=== PATIENT | male | born 1970 | race Caucasian/White ===

== ENCOUNTER 2017-06-19 07:30 | Inpatient (IN) | payer BC, OTHER ==
[~2017-06-19 07:30] MED LIST: Lactated Ringers 1,000 ML IV SCH; Lidocaine 1%/Sod Bicarbonate in NS 8.4% 1 ML Syringe PRN; Sodium Chloride 0.9% 10 ML Syringe FLUSH PRN
[2017-06-19] MEDS ORDERED: fentaNYL 100 MCG/2 ML SDV ONE (07:35)
[2017-06-19] MEDS ORDERED: Ondansetron 4 MG/2 ML SDV ONE (07:35)
[2017-06-19] MEDS ORDERED: Morphine PF 10 MG/10 ML SDV ONE (07:35)
[2017-06-19] MEDS ORDERED: Propofol 200 MG/20 ML SDV ONE ×3 (07:35→15:37)
[2017-06-19] MEDS ORDERED: Midazolam 1 MG/ML 2 ML SDV ONE ×2 (07:35→13:23)
[2017-06-19] MEDS ORDERED: EPINEPHrine 1 MG/ML 30 ML MDV ONE (09:22)
[2017-06-19] MEDS ORDERED: ceFAZolin 1 GM Vial ONE (09:26)
--- NOTE | 2017-06-19 10:41 | PCM.PREANE ---
Preanesthetic Assessment - Anesthesia/Transfusion/Family Hx Anesthesia History: No Prior Anesthesia Family History of Anesthesia Reaction: No Transfusion History: No Prior Transfusion(s) Intubation History: Unknown - Review of Systems General: No Symptoms Pulmonary: No Symptoms Cardiovascular: No Symptoms Gastrointestinal: No Symptoms Neurological: No Symptoms - Physical Assessment NPO Status Date: 06/18/17 NPO Status Time: 22:00 Pulse: 67 O2 Sat by Pulse Oximetry: 97 Respiratory Rate: 16 Blood Pressure: 110/78 Temperature: 36.7 C Height: 1.52 m Weight: 80 kg ASA Class: 1 Mental Status: Alert & Oriented x3 Airway Class: Mallampati = 2 Dentition: Reports: Normal Dentition, Nixa(s), Caries Thyro-Mental Finger Breadths: 3 Mouth Opening Finger Breadths: 3 ROM/Head Extension: Full Lungs: Clear to Auscultation, Normal Respiratory Effort Cardiovascular: Regular Rate, Regular Rhythm, No Murmurs - Lab Values: Laboratory Last Values MRSA (PCR) Negative 06/06/17 10:24 All labs reviewed and noted and within acceptable ranges to proceed with scheduled procedure. - Imaging/EKG Impressions: EKG: sinus rhythm rate= 70, Low voltage, precordial leads, consider anterior infarct. CXR: No acute abnormality - Allergies Allergies/Adverse Reactions: Allergies Allergy/AdvReac Type Severity Reaction Status Date / Time No Known Allergies Allergy Verified 06/16/17 14:18 - Anesthesia Plan Pre-Op Medication Ordered: None - Acknowledgements Anesthesia Type Planned: Spinal Pt an Appropriate Candidate for the Planned Anesthesia: Yes Alternatives and Risks of Anesthesia Discussed w Pt/Guardian: Yes Pt/Guardian Understands and Agrees with Anesthesia Plan: Yes PreAnesthesia Questionnaire - Past Health History Medical/Surgical History: Denies Medical/Surgical History HEENT History: Reports: Impaired Vision, Other (See Below) Other HEENT History: wears glasses Musculoskeletal History: Reports: Other (See Below) Other Musculoskeletal History: left knee pain Neurological History: Endocrine/Metabolic History: Reports: None - Past Surgical History Endocrine Surgical History: Reports: None - SUBSTANCE USE Smoking Status *Q: Never Smoker Second Hand Smoke Exposure: No Recreational Drug Use History: No - HOME MEDS Home Medications: Home Meds Acetaminophen [Tylenol] 650 mg PO Q6H PRN 06/16/17 [History] - CURRENT (IN HOUSE) MEDS Current Meds: Current Medications Morphine Sulfate 8 mg/Epinephrine HCl 0.3 mg/Cefuroxime Sodium 750 mg/Ketorolac Tromethamine 30 mg/Sodium Chloride 27.9 ml 0 mg .XX ONETIME ONE Stop: 06/19/17 07:11 Lactated Ringer's (Ringers, Lactated) 1,000 mls @ 125 mls/hr IV ASDIRECTED TETE Lidocaine/Sodium Bicarbonate (Buffered Lidocaine 1% In Ns 8.4%) 0.25 ml IV ONETIME PRN PRN Reason: Prior to IV Start Sodium Chloride (Saline Flush) 10 ml FLUSH ASDIRECTED PRN PRN Reason: Keep Vein Open Discontinued Medications Bupivacaine HCl (Marcaine 0.25%) Confirm Administered Dose 30 ml .ROUTE .STK- MED ONE Stop: 06/19/17 09:23 Cefazolin Sodium (Ancef) Confirm Administered Dose 2 gm .ROUTE .STK-MED ONE Stop: 06/19/17 09:27 Epinephrine HCl (Adrenalin 1:1000) Confirm Administered Dose 30 mg .ROUTE .STK- MED ONE Stop: 06/19/17 09:23 Fentanyl (Sublimaze) Confirm Administered Dose 100 mcg .ROUTE .STK-MED ONE Stop: 06/19/17 07:36 Lidocaine HCl (Xylocaine-Mpf 1%) Confirm Administered Dose 10 mls @ as directed .ROUTE .STK-MED ONE Stop: 06/19/17 07:36 Iodine (Iodine 2% Mild Tincture) Confirm Administered Dose 30 ml .ROUTE .STK- MED ONE Stop: 06/19/17 09:23 Midazolam HCl (Versed 1 Mg/Ml) Confirm Administered Dose 2 mg .ROUTE .STK-MED ONE Stop: 06/19/17 07:36 Morphine Sulfate (Duramorph Pf) Confirm Administered Dose 10 mg .ROUTE .STK-MED ONE Stop: 06/19/17 07:36 Ondansetron HCl (Zofran) Confirm Administered Dose 4 mg .ROUTE .STK-MED ONE Stop: 06/19/17 07:36 Propofol (Diprivan 20 Ml) Confirm Administered Dose 400 mg .ROUTE .STK-MED ONE Stop: 06/19/17 07:36 Tranexamic Acid (Cyklokapron) Confirm Administered Dose 1,000 mg .ROUTE .STK- MED ONE Stop: 06/19/17 09:23
[2017-06-19] MEDS ORDERED: Phenylephrine 1% 10 MG/ML SDV ONE (12:20)
[2017-06-19] MEDS ORDERED: ePHEDrine 50 MG/ML SDV ONE (12:20)
[2017-06-19] MEDS ORDERED: Morphine 8 MG, EPINEPHrine 0.3 MG, Cefuroxime 750 MG, Ketorolac 30 MG, Sodium Chloride ... ONE ×5 (12:45)
[2017-06-19] MEDS ORDERED: Bupivacaine 0.25% 30 ML SDV ONE (13:32)
[2017-06-19] MEDS ORDERED: ePHEDrine 50 MG/ML SDV IVPUSH PRN (14:16)
[2017-06-19] MEDS ORDERED: fentaNYL 100 MCG/2 ML SDV IVPUSH PRN (14:16)
[2017-06-19] MEDS ORDERED: Sennosides 8.6 MG Tab PO PRN (14:16)
[2017-06-19] MEDS ORDERED: Morphine 2 MG/ML Syringe IVPUSH PRN (14:16)
[2017-06-19] MEDS ORDERED: Bisacodyl 5 MG Tab PO PRN (14:16)
[2017-06-19] MEDS ORDERED: Magnesium Hydroxide 400 MG/5 ML Susp 30 ML Cup PO PRN (14:16)
[2017-06-19] MEDS ORDERED: Cyclobenzaprine 10 MG Tab PO PRN (14:16)
[2017-06-19] MEDS ORDERED: Ondansetron 4 MG/2 ML SDV IVPUSH PRN ×2 (14:16)
[2017-06-19] MEDS ORDERED: HYDROmorphone 0.5 MG/0.5 ML Syringe IVPUSH PRN (14:16)
[2017-06-19] MEDS ORDERED: diphenhydrAMINE 50 MG/ML SDV IVPUSH PRN (14:16)
[2017-06-19] MEDS ORDERED: Naloxone 0.4 MG/ML SDV IVPUSH PRN (14:16)
[2017-06-19] MEDS ORDERED: Midazolam 1 MG/ML 2 ML SDV IVPUSH PRN (14:16)
[2017-06-19] MEDS ORDERED: Lactated Ringers 1,000 ML ONE ×2 (14:25→14:36)
[2017-06-19] MEDS ORDERED: Phenylephrine 1 MG in Sodium Chloride 0.9% 10 ML IV SCH (14:30)
[2017-06-19] MEDS: Vancomycin 1 GM SDV ONE ×2 (14:53→15:00)
[2017-06-19] MEDS: Iodine/Sodium Iodide 2% Tincture 30 ML Bottle ONE ×3 (14:54→15:13)
[2017-06-19] MEDS: Bupivacaine 0.25% 30 ML SDV ONE ×2 (14:56→15:18)
--- NOTE | 2017-06-19 15:14 | PCM.CONS ---
H&P History of Present Illness - General Date of Service: 06/19/17 Admit Problem/Dx: Admission Diagnosis/Problem Admission Diagnosis/Problem Osteoarthritis of knee Source of Information: Patient, Old Records, Provider, RN Notes Reviewed, Significant Other History Limitations: Reports: Physical Impairment - History of Present Illness Initial Comments - Free Text/Narative: This is a 47-year-old, black male, with past medical history of Obesity and OA/ DJD who underwent revision of left total knee arthroplasty post operative day zero. Patient is nauseous w/o emesis. Currently, his pain is controlled. He denies any other acute issues. Hospital Medicine was consulted for postoperative care. Left Knee Pain Score (Numeric/FACES): 1 - Related Data Allergies/Adverse Reactions: Allergies Allergy/AdvReac Type Severity Reaction Status Date / Time No Known Allergies Allergy Verified 06/19/17 18:07 Home Medications: Home Meds Acetaminophen [Tylenol] 650 mg PO Q6H PRN 06/16/17 [History] Past Medical History - Past Health History Medical/Surgical History: Denies Medical/Surgical History HEENT History: Reports: Impaired Vision, Other (See Below) Other HEENT History: wears glasses Musculoskeletal History: Reports: Other (See Below) Other Musculoskeletal History: left knee pain Neurological History: Endocrine/Metabolic History: Reports: None - Past Surgical History Endocrine Surgical History: Reports: None Social & Family History - Tobacco Use Smoking Status *Q: Never Smoker Second Hand Smoke Exposure: No - Caffeine Use Caffeine Use: Reports: None - Recreational Drug Use Recreational Drug Use: No H&P Review of Systems - Review of Systems: Review Of Systems: See Below General: Denies: Fever, Chills, Malaise, Weakness, Fatigue HEENT: Reports: No Symptoms Pulmonary: Denies: Shortness of Breath Cardiovascular: Denies: Chest Pain Gastrointestinal: Reports: Nausea. Denies: Abdominal Pain, Diarrhea, Decreased Appetite, Vomiting Genitourinary: Reports: No Symptoms Musculoskeletal: Reports: No Symptoms Skin: Denies: Cyanosis, Pallor, Diaphoresis Psychiatric: Denies: Confusion, Depression, Anxiety, Hallucinations, Suicidal Ideation, Homicidal Ideation, Hallucinations (Auditory) Neurological: Denies: Dizziness, Difficulty Walking, Weakness, Gait Disturbance Hematologic/Lymphatic: Reports: No Symptoms Immunologic: Reports: No Symptoms Exam - Exam Exam: See Below - Vital Signs Vital Signs: Last Vital Signs Temp 36.7 C 06/19/17 12:01 Pulse 70 06/19/17 12:45 Resp 14 06/19/17 12:45 BP 110/80 06/19/17 12:45 Pulse Ox 98 06/19/17 12:45 Weight: 80 kg - Exam General: Alert, Oriented, Cooperative, Other (Obese). No: Mild Distress HEENT: Conjunctiva Clear, EACs Clear, EOMI, Hearing Intact, Mucosa Moist & [place] , Nares Patent, Normal Nasal Septum, Posterior Pharynx Clear, Pupils Equal, Pupils Reactive, TMs Clear Neck: Supple, Trachea Midline, +2 Carotid Pulse wo Bruit, Full Range of Motion Lungs: Clear to Auscultation, Normal Respiratory Effort Cardiovascular: Regular Rate, Regular Rhythm GI/Abdominal Exam: Normal Bowel Sounds, Soft, Non-Tender, No Organomegaly, No Distention, No Abnormal Bruit, No Mass (Male) Exam: Other (indwelling calderón catheter) Rectal (Males) Exam: Deferred Back Exam: Normal Inspection, Decreased Range of Motion Extremities: Normal Inspection, Normal Range of Motion, Non-Tender, No Pedal Edema, Normal Capillary Refill Peripheral Pulses: 2+: Posterior Tibial (L), Posterior Tibial (R), Dorsalis Pedis (L), Dorsalis Pedis (R) Skin: Warm, Dry, Intact Neuro Extensive - Mental Status: Oriented x3, Normal Cognition, Memory Intact Neuro Extensive - Motor, Sensory, Reflexes: CN II-XII Intact (limited but grossly intact), Abnormal Gait Psychiatric: Alert, Normal Affect, Normal Mood Consult PN Assessment/Plan POD#: 0 Problem List Initiated/Reviewed/Updated: Yes Plan: Assessment: Acute: Post-Operative Care State - Stable - Continue to monitor for hemodynamic instability S/p Left Total Knee Arthroplasty - Stable - DVT and Pain Management as per primary team Hx/o Chronic Left Knee Pain 2/2 OA - Pain Management as per primary team Post Operative Nausea and Vomiting - Scopolamine patch x1 now - PRN anti-emesis Chronic: OA/DJD Obesity with BMI 34.4 Plan: He is clinically stable Routine AM labs Continue home meds PT/OT consult IS q2 awake Thank you for the opportunity to participate in the management of this patient Requesting Provider: Dr. Aceves Date Consult Requested: 06/19/17 Patient History Reviewed: Yes Admission H&P Reviewed: Yes Consult Result/Summary:: Hemodynamically Stable with Post-Operative Nausea and Vomiting Notified Requestor: Yes
--- NOTE | 2017-06-19 16:02 | PCM.POSTAN ---
POST ANESTHESIA ASSESSMENT - MENTAL STATUS Mental Status: Alert, Oriented - VITAL SIGNS Pulse Rate: 79 SaO2: 99 Resp Rate: 13 Blood Pressure: 97/74 Temperature: 99 C - RESPIRATORY Respiratory Status: Respiratory Rate WNL, Airway Patent, O2 Saturation Stable - CARDIOVASCULAR CV Status: Pulse Rate WNL, Blood Pressure Stable - GASTROINTESTINAL GI Status: No Symptoms - PAIN Pain Score: 0 - POST OP HYDRATION Hydration Status: Adequate & Stable
[2017-06-19] MEDS ORDERED: Meperidine PF 50 MG/ML Syringe IVPUSH SCH (16:20)
--- NOTE | 2017-06-19 16:25 | CR ---
Left knee: 2 views of the left knee were obtained. Comparison: No previous study. Recently placed left knee prosthesis is seen. Underlying bony structures are intact. No acute fracture or other abnormality is identified. Impression: 1. Satisfactory radiographic appearance of recently placed left knee prosthesis. Diagnostic code #2
[2017-06-19] MEDS ORDERED: Scopolamine 1.5 MG Transdermal Patch TRDERM PRN (17:37)
[2017-06-19] MEDS ORDERED: Remove Patch **SCOPOLAMINE TRDERM SCH (17:45)
[2017-06-19] MEDS ORDERED: Acetaminophen 325 MG Tab PO PRN (18:47)
[2017-06-19] MEDS: diphenhydrAMINE 50 MG/ML SDV IVPUSH PRN (19:07)
[2017-06-19] MEDS: Famotidine 20 MG Tab PO SCH (22:03)
[2017-06-19] MEDS: ceFAZolin 2 GM in Premix Bag 1 BAG IV SCH (22:03)
[2017-06-19] MEDS: Docusate Sodium 100 MG Cap PO SCH (22:04)
[2017-06-19] MEDS: Acetaminophen/oxyCODONE 325-5 MG Tab PO PRN (22:13)
[2017-06-20] MEDS: diphenhydrAMINE 50 MG/ML SDV IVPUSH PRN (05:17)
[2017-06-20] MEDS: ceFAZolin 2 GM in Premix Bag 1 BAG IV SCH ×2 (05:17→11:30)
[2017-06-20] MEDS: Acetaminophen/oxyCODONE 325-5 MG Tab PO PRN ×3 (06:27→15:03)
[2017-06-20] MEDS ORDERED: Multivitamins,Therapeutic Tab PO SCH (07:00)
--- NOTE | 2017-06-20 08:44 | PCM48HPAN ---
Post Anesthesia Note - EVALUATION WITHIN 48HRS OF ANESTHETIC Vital Signs in Normal Range: Yes Patient Participated in Evaluation: Yes Respiratory Function Stable: Yes Airway Patent: Yes Cardiovascular Function Stable: Yes Hydration Status Stable: Yes Pain Control Satisfactory: Yes Nausea and Vomiting Control Satisfactory: Yes Mental Status Recovered: Yes - COMMENTS/OBSERVATIONS Free Text/Narrative:: Patient denied any headache, residual numbness/tingling to lower extremities, or back pain. Patient did state he did have some pruritus but improves with some benadryl.
[2017-06-20] MEDS ORDERED: Aspirin 325 MG Tab.EC PO SCH (09:00)
[2017-06-20] MEDS ORDERED: Tamsulosin 0.4 MG Cap.ER PO ONE (09:00)
[2017-06-20] MEDS: Docusate Sodium 100 MG Cap PO SCH (09:03)
[2017-06-20] MEDS: Famotidine 20 MG Tab PO SCH (09:03)
--- NOTE | 2017-06-20 11:57 | PCM.CONSN ---
- General Info Date of Service: 06/20/17 Admission Dx/Problem (Free Text): Admission Diagnosis/Problem Admission Diagnosis/Problem Osteoarthritis of knee POD #[address] Aceves Doing well, pain under good control, no nausea. Tolerating meals well. Voided after flomax given and pusing oral fluids this morning. Hgb 11.5 VSS, afebrile Plans DC home with today Functional Status: Reports: Pain Controlled, Tolerating Diet, Ambulating, Urinating, Incentive Spirometry. Denies: New Symptoms - Review of Systems General: Reports: No Symptoms HEENT: Reports: No Symptoms Pulmonary: Reports: No Symptoms Cardiovascular: Reports: No Symptoms Gastrointestinal: Reports: No Symptoms Genitourinary: Reports: No Symptoms Musculoskeletal: Reports: Leg Pain (pain controlled) Skin: Reports: No Symptoms Neurological: Reports: No Symptoms Psychiatric: Reports: No Symptoms - Patient Data Vitals - Most Recent: Last Vital Signs Temp 98.1 F 06/20/17 07:55 Pulse 65 06/20/17 07:55 Resp 16 06/20/17 11:00 BP 90/74 06/20/17 07:55 Pulse Ox 95 06/20/17 11:00 Weight - Most Recent: 187 lb 12.8 oz I&O - Last 24 Hours: Intake & Output 06/19/17 06/20/17 06/20/17 22:59 06:59 14:59 Intake Total 910 300 0 Output Total 175 250 Balance 735 50 0 Lab Results Last 24 Hours: Laboratory Results - last 24 hr 06/20/17 06/20/17 Range/Units 06:05 06:05 WBC 9.03 (4.23-9.07) K/mm3 RBC 3.75 L (4.63-6.08) M/mm3 Hgb 11.5 L (13.7-17.5) gm/L Hct 33.5 L (40.1-51.0) % MCV 89.3 (79.0-92.2) fl MCH 30.7 (25.7-32.2) pg MCHC 34.3 (32.2-35.5) g/dl RDW Std Deviation 40.6 (35.1-43.9) fL Plt Count 266 (163-337) K/mm3 MPV 9.2 L (9.4-12.3) fl Sodium 138 (136-145) mEq/L Potassium 4.1 (3.5-5.1) mEq/L Chloride 104 (98-107) mEq/L Carbon Dioxide 30 (21-32) mEq/L Anion Gap 8.1 (5-15) BUN 19 H (7-18) mg/dL Creatinine 1.3 (0.7-1.3) mg/dL Est Cr Clr Drug Dosing 50.21 mL/min Estimated GFR (MDRD) 59 (>60) mL/min BUN/Creatinine Ratio 14.6 (14-18) Glucose 98 (74-106) mg/dL Calcium 8.5 (8.5-10.1) mg/dL Total Bilirubin 0.5 (0.2-1.0) mg/dL AST 22 (15-37) U/L ALT 39 (16-63) U/L Alkaline Phosphatase 47 (46-116) U/L Total Protein 6.2 L (6.4-8.2) g/dl Albumin 3.3 L (3.4-5.0) g/dl Globulin 2.9 gm/dL Albumin/Globulin Ratio 1.1 (1-2) Med Orders - Current: Current Medications Acetaminophen (Tylenol) 650 mg PO Q6H PRN PRN Reason: Pain Aspirin (Ecotrin) 325 mg PO BID [facility] Last Admin: 06/20/17 09:03 Dose: 325 mg Bisacodyl (Dulcolax) 5 mg PO DAILY PRN PRN Reason: Constipation Cyclobenzaprine HCl (Flexeril) 10 mg PO TID PRN PRN Reason: Spasms Diphenhydramine HCl (Benadryl) 25 mg IVPUSH Q6H PRN PRN Reason: Itching Last Admin: 06/20/17 05:17 Dose: 25 mg Docusate Sodium (Colace) 100 mg PO BID [facility] Last Admin: 06/20/17 09:03 Dose: 100 mg Famotidine (Pepcid) 20 mg PO Q12H [facility] Last Admin: 06/20/17 09:03 Dose: 20 mg Cefazolin Sodium/Dextrose 2 gm (/ Premix) 50 mls @ 100 mls/hr IV Q8H [facility] Stop: 06/20/17 12:29 Last Admin: 06/20/17 11:30 Dose: 100 mls/hr Magnesium Hydroxide (Milk Of Magnesia) 30 ml PO BID PRN PRN Reason: Constipation Meperidine HCl (Demerol) 12.5 mg IVPUSH ONETIME [facility] Last Admin: 06/19/17 16:28 Dose: 12.5 mg Miscellaneous Information (Remove Patch) 1 ea TRDERM Q72H [facility] Last Admin: 06/19/17 18:46 Dose: Not Given Morphine Sulfate (Morphine) 2 mg IVPUSH Q2H PRN PRN Reason: Breakthrough Pain Multivitamins (Thera) 1 each PO WITHBREAKFAST [facility] Last Admin: 06/20/17 06:25 Dose: 1 each Naloxone HCl (Narcan) 0.1 mg IVPUSH Q5M PRN PRN Reason: Oversedation Ondansetron HCl (Zofran) 4 mg IVPUSH Q6H PRN PRN Reason: Nausea/Vomiting Oxycodone/Acetaminophen (Percocet 325-5 Mg) 1 - 2 tab PO Q4H PRN PRN Reason: Pain Last Admin: 06/20/17 10:37 Dose: 2 tab Scopolamine (Transderm-Scop) 1.5 mg TRDERM Q72H PRN PRN Reason: Nausea/Vomiting Last Admin: 06/19/17 17:49 Dose: 1.5 mg Senna (Senna) 8.6 mg PO BID PRN PRN Reason: Constipation Discontinued Medications Bupivacaine HCl (Marcaine 0.25%) Confirm Administered Dose 30 ml .ROUTE .STK- MED ONE Stop: 06/19/17 09:23 Last Admin: 06/19/17 14:56 Dose: 30 ml Bupivacaine HCl (Marcaine 0.25%) Confirm Administered Dose 30 ml .ROUTE .STK- MED ONE Stop: 06/19/17 13:33 Cefazolin Sodium (Ancef) Confirm Administered Dose 2 gm .ROUTE .STK-MED ONE Stop: 06/19/17 09:27 Last Admin: 06/19/17 15:13 Dose: 2 gm Morphine Sulfate 8 mg/Epinephrine HCl 0.3 mg/Cefuroxime Sodium 750 mg/Ketorolac Tromethamine 30 mg/Sodium Chloride 27.9 ml 0 mg .XX ONETIME ONE Stop: 06/19/17 12:46 Last Admin: 06/19/17 21:37 Dose: Not Given Diphenhydramine HCl (Benadryl) 25 mg IVPUSH Q6H PRN PRN Reason: pruritis Stop: 06/19/17 18:00 Ephedrine Sulfate (Ephedrine Sulfate) Confirm Administered Dose 50 mg .ROUTE .STK-MED ONE Stop: 06/19/17 12:21 Ephedrine Sulfate (Ephedrine Sulfate) 5 mg IVPUSH ASDIRECTED PRN PRN Reason: Hypotension Stop: 06/19/17 18:00 Epinephrine HCl (Adrenalin 1:1000) Confirm Administered Dose 30 mg .ROUTE .STK- MED ONE Stop: 06/19/17 09:23 Fentanyl (Sublimaze) Confirm Administered Dose 100 mcg .ROUTE .STK-MED ONE Stop: 06/19/17 07:36 Fentanyl (Sublimaze) 50 mcg IVPUSH Q5M PRN PRN Reason: Pain Stop: 06/19/17 18:00 Hydromorphone HCl (Dilaudid) 0.5 mg IVPUSH Q15M PRN PRN Reason: severe pain Stop: 06/19/17 18:00 Lactated Ringer's (Ringers, Lactated) 1,000 mls @ 125 mls/hr IV ASDIRECTED TETE Stop: 06/19/17 23:00 Last Admin: 06/19/17 11:35 Dose: 125 mls/hr Lidocaine HCl (Xylocaine-Mpf 1%) Confirm Administered Dose 10 mls @ as directed .ROUTE .ST-MED ONE Stop: 06/19/17 07:36 Lactated Ringer's (Ringers, Lactated) Confirm Administered Dose 1,000 mls @ as directed .ROUTE .ST-MED ONE Stop: 06/19/17 14:26 Phenylephrine HCl 1 mg/ Sodium (Chloride) 10.1 mls @ 1 mls/sec IV TITRATE TETE PRN Reason: Protocol Stop: 06/19/17 17:00 Lactated Ringer's (Ringers, Lactated) Confirm Administered Dose 1,000 mls @ as directed .ROUTE .STK-MED ONE Stop: 06/19/17 14:37 Iodine (Iodine 2% Mild Tincture) Confirm Administered Dose 30 ml .ROUTE .STK- MED ONE Stop: 06/19/17 09:23 Last Admin: 06/19/17 14:54 Dose: 30 ml Lidocaine/Sodium Bicarbonate (Buffered Lidocaine 1% In Ns 8.4%) 0.25 ml .XX ONETIME PRN PRN Reason: Prior to IV Start Stop: 06/19/17 18:00 Last Admin: 06/19/17 11:34 Dose: 0.25 ml Midazolam HCl (Versed 1 Mg/Ml) Confirm Administered Dose 2 mg .ROUTE .STK-MED ONE Stop: 06/19/17 07:36 Midazolam HCl (Versed 1 Mg/Ml) Confirm Administered Dose 2 mg .ROUTE .STK-MED ONE Stop: 06/19/17 13:24 Midazolam HCl (Versed 1 Mg/Ml) 2 mg IVPUSH ONETIME PRN PRN Reason: Sedation Stop: 06/19/17 18:00 Morphine Sulfate (Duramorph Pf) Confirm Administered Dose 10 mg .ROUTE .STK-MED ONE Stop: 06/19/17 07:36 Ondansetron HCl (Zofran) Confirm Administered Dose 4 mg .ROUTE .STK-MED ONE Stop: 06/19/17 07:36 Ondansetron HCl (Zofran) 4 mg IVPUSH ONETIME PRN PRN Reason: Nausea/Vomiting Stop: 06/19/17 18:00 Last Admin: 06/19/17 16:23 Dose: 4 mg Phenylephrine HCl (Everardo-Synephrine) Confirm Administered Dose 10 mg .ROUTE .STK- MED ONE Stop: 06/19/17 12:21 Propofol (Diprivan 20 Ml) Confirm Administered Dose 400 mg .ROUTE .STK-MED ONE Stop: 06/19/17 07:36 Propofol (Diprivan 20 Ml) Confirm Administered Dose 200 mg .ROUTE .STK-MED ONE Stop: 06/19/17 14:54 Propofol (Diprivan 20 Ml) Confirm Administered Dose 200 mg .ROUTE .STK-MED ONE Stop: 06/19/17 15:38 Sodium Chloride (Saline Flush) 10 ml FLUSH ASDIRECTED PRN PRN Reason: Keep Vein Open Stop: 06/19/17 18:00 Tamsulosin HCl (Flomax) 0.4 mg PO ONETIME ONE Stop: 06/20/17 09:01 Last Admin: 06/20/17 09:03 Dose: 0.4 mg Tranexamic Acid (Cyklokapron) Confirm Administered Dose 1,000 mg .ROUTE .STK- MED ONE Stop: 06/19/17 09:23 Last Admin: 06/19/17 15:24 Dose: 1,000 mg Vancomycin HCl (Vancomycin) Confirm Administered Dose 1 gm .ROUTE .STK-MED ONE Stop: 06/19/17 13:00 Last Admin: 06/19/17 14:53 Dose: 1 gm - Exam Quality Assessment: Supplemental Oxygen (weaned from this morning during my visit with him), DVT Prophylaxis General: Alert, Oriented, Cooperative, No Acute Distress HEENT: Pupils Equal, EOMI, Mucous Membr. Moist/[place] Neck: Supple Lungs: Clear to Auscultation, Normal Respiratory Effort Cardiovascular: Regular Rate, Regular Rhythm GI/Abdominal Exam: Normal Bowel Sounds, Soft, Non-Tender, No Organomegaly (Male) Exam: Deferred Back Exam: Normal Inspection Extremities: Other (teds, SCD's, ice to knee) Peripheral Pulses: 2+: Dorsalis Pedis (L), Dorsalis Pedis (R) Wound/Incisions: Dressing Dry and Intact Neurological: No New Focal Deficit Psy/Mental Status: Alert, Normal Affect, Normal Mood Consult PN Assessment/Plan POD#: 1 (1) S/P total knee arthroplasty SNOMED Code(s): 5098182756115, 941146481, 9795294893687 Code(s): Z96.659 - PRESENCE OF UNSPECIFIED ARTIFICIAL KNEE JOINT Priority: High Current Visit: Yes Qualifiers: Laterality: left Qualified Code(s): Z96.652 - Presence of left artificial knee joint (2) Osteoarthritis SNOMED Code(s): 093298733 Code(s): M19.90 - UNSPECIFIED OSTEOARTHRITIS, UNSPECIFIED SITE Priority: High Current Visit: Yes Qualifiers: Osteoarthritis location: knee Osteoarthritis type: primary Laterality: left Qualified Code(s): M17.12 - Unilateral primary osteoarthritis, left knee (3) Obesity (BMI 30-39.9) SNOMED Code(s): 718251430, 636435071 Code(s): E66.9 - OBESITY, UNSPECIFIED Priority: Medium Current Visit: No (4) Postoperative nausea SNOMED Code(s): 62504384 Code(s): R11.0 - NAUSEA; Z98.890 - OTHER SPECIFIED POSTPROCEDURAL STATES Priority: High Current Visit: Yes Problem List Initiated/Reviewed/Updated: Yes Plan: I/P: S/P Lt TKA d/t Osteoarthritis -POD #[address] Aceves -Pain management and DVT prophylax per primary team -PT/OT -RT/IS -Hgb 11.5 today Postoperative nausea- Resolved, tolerating meals without n/v. Chronic conditions: Obesity- stable DJD Other: CM/SW for assist with DC planning--Patient plans DC home with today; OK for dc today from Hospitalist standpoint; doing well. Patient is Full Code Status
[2017-06-20 15:56] VITALS: BP 113/63
--- NOTE | 2017-06-22 09:29 | PCM.SURGPN ---
- General Info Date of Service: 06/20/17 POD#: 1 Functional Status: Reports: Pain Controlled, Tolerating Diet, Ambulating, Urinating - Review of Systems Musculoskeletal: Reports: Other (The pt has met inpatient therapy goals.) - Patient Data Vitals - Most Recent: Last Vital Signs Temp 99.1 F 06/20/17 15:13 Pulse 79 06/20/17 15:13 Resp 14 06/20/17 15:13 BP 113/63 06/20/17 15:13 Pulse Ox 97 06/20/17 15:13 Weight - Most Recent: 187 lb 12.8 oz Med Orders - Current: Current Medications Discontinued Medications Acetaminophen (Tylenol) 650 mg PO Q6H PRN PRN Reason: Pain Aspirin (Ecotrin) 325 mg PO BID TETE Last Admin: 06/20/17 09:03 Dose: 325 mg Bisacodyl (Dulcolax) 5 mg PO DAILY PRN PRN Reason: Constipation Bupivacaine HCl (Marcaine 0.25%) Confirm Administered Dose 30 ml .ROUTE .STK- MED ONE Stop: 06/19/17 09:23 Last Admin: 06/19/17 15:18 Dose: 30 ml Bupivacaine HCl (Marcaine 0.25%) Confirm Administered Dose 30 ml .ROUTE .STK- MED ONE Stop: 06/19/17 13:33 Cefazolin Sodium (Ancef) Confirm Administered Dose 2 gm .ROUTE .STK-MED ONE Stop: 06/19/17 09:27 Last Admin: 06/19/17 15:13 Dose: 2 gm Morphine Sulfate 8 mg/Epinephrine HCl 0.3 mg/Cefuroxime Sodium 750 mg/Ketorolac Tromethamine 30 mg/Sodium Chloride 27.9 ml 0 mg .XX ONETIME ONE Stop: 06/19/17 12:46 Last Admin: 06/19/17 21:37 Dose: Not Given Cyclobenzaprine HCl (Flexeril) 10 mg PO TID PRN PRN Reason: Spasms Last Admin: 06/20/17 15:42 Dose: 10 mg Diphenhydramine HCl (Benadryl) 25 mg IVPUSH Q6H PRN PRN Reason: pruritis Stop: 06/19/17 18:00 Diphenhydramine HCl (Benadryl) 25 mg IVPUSH Q6H PRN PRN Reason: Itching Last Admin: 06/20/17 05:17 Dose: 25 mg Docusate Sodium (Colace) 100 mg PO BID [facility] Last Admin: 06/20/17 09:03 Dose: 100 mg Ephedrine Sulfate (Ephedrine Sulfate) Confirm Administered Dose 50 mg .ROUTE .STK-MED ONE Stop: 06/19/17 12:21 Ephedrine Sulfate (Ephedrine Sulfate) 5 mg IVPUSH ASDIRECTED PRN PRN Reason: Hypotension Stop: 06/19/17 18:00 Epinephrine HCl (Adrenalin 1:1000) Confirm Administered Dose 30 mg .ROUTE .STK- MED ONE Stop: 06/19/17 09:23 Famotidine (Pepcid) 20 mg PO Q12H [facility] Last Admin: 06/20/17 09:03 Dose: 20 mg Fentanyl (Sublimaze) Confirm Administered Dose 100 mcg .ROUTE .STK-MED ONE Stop: 06/19/17 07:36 Fentanyl (Sublimaze) 50 mcg IVPUSH Q5M PRN PRN Reason: Pain Stop: 06/19/17 18:00 Hydromorphone HCl (Dilaudid) 0.5 mg IVPUSH Q15M PRN PRN Reason: severe pain Stop: 06/19/17 18:00 Lactated Ringer's (Ringers, Lactated) 1,000 mls @ 125 mls/hr IV ASDIRECTED [facility] Stop: 06/19/17 23:00 Last Admin: 06/19/17 11:35 Dose: 125 mls/hr Lidocaine HCl (Xylocaine-Mpf 1%) Confirm Administered Dose 10 mls @ as directed .ROUTE .ST-MED ONE Stop: 06/19/17 07:36 Lactated Ringer's (Ringers, Lactated) Confirm Administered Dose 1,000 mls @ as directed .ROUTE .STK-MED ONE Stop: 06/19/17 14:26 Phenylephrine HCl 1 mg/ Sodium (Chloride) 10.1 mls @ 1 mls/sec IV TITRATE [facility] PRN Reason: Protocol Stop: 06/19/17 17:00 Cefazolin Sodium/Dextrose 2 gm (/ Premix) 50 mls @ 100 mls/hr IV Q8H [facility] Stop: 06/20/17 12:29 Last Admin: 06/20/17 11:30 Dose: 100 mls/hr Lactated Ringer's (Ringers, Lactated) Confirm Administered Dose 1,000 mls @ as directed .ROUTE .STK-MED ONE Stop: 06/19/17 14:37 Iodine (Iodine 2% Mild Tincture) Confirm Administered Dose 30 ml .ROUTE .STK- MED ONE Stop: 06/19/17 09:23 Last Admin: 06/19/17 15:12 Dose: 18 ml Lidocaine/Sodium Bicarbonate (Buffered Lidocaine 1% In Ns 8.4%) 0.25 ml .XX ONETIME PRN PRN Reason: Prior to IV Start Stop: 06/19/17 18:00 Last Admin: 06/19/17 11:34 Dose: 0.25 ml Magnesium Hydroxide (Milk Of Magnesia) 30 ml PO BID PRN PRN Reason: Constipation Meperidine HCl (Demerol) 12.5 mg IVPUSH ONETIME [facility] Last Admin: 06/19/17 16:28 Dose: 12.5 mg Midazolam HCl (Versed 1 Mg/Ml) Confirm Administered Dose 2 mg .ROUTE .STK-MED ONE Stop: 06/19/17 07:36 Midazolam HCl (Versed 1 Mg/Ml) Confirm Administered Dose 2 mg .ROUTE .STK-MED ONE Stop: 06/19/17 13:24 Midazolam HCl (Versed 1 Mg/Ml) 2 mg IVPUSH ONETIME PRN PRN Reason: Sedation Stop: 06/19/17 18:00 Miscellaneous Information (Remove Patch) 1 ea TRDERM Q72H [facility] Last Admin: 06/19/17 18:46 Dose: Not Given Morphine Sulfate (Duramorph Pf) Confirm Administered Dose 10 mg .ROUTE .STK-MED ONE Stop: 06/19/17 07:36 Morphine Sulfate (Morphine) 2 mg IVPUSH Q2H PRN PRN Reason: Breakthrough Pain Multivitamins (Thera) 1 each PO WITHBREAKFAST [facility] Last Admin: 06/20/17 06:25 Dose: 1 each Naloxone HCl (Narcan) 0.1 mg IVPUSH Q5M PRN PRN Reason: Oversedation Ondansetron HCl (Zofran) Confirm Administered Dose 4 mg .ROUTE .STK-MED ONE Stop: 06/19/17 07:36 Ondansetron HCl (Zofran) 4 mg IVPUSH ONETIME PRN PRN Reason: Nausea/Vomiting Stop: 06/19/17 18:00 Last Admin: 06/19/17 16:23 Dose: 4 mg Ondansetron HCl (Zofran) 4 mg IVPUSH Q6H PRN PRN Reason: Nausea/Vomiting Oxycodone/Acetaminophen (Percocet 325-5 Mg) 1 - 2 tab PO Q4H PRN PRN Reason: Pain Last Admin: 06/20/17 15:03 Dose: 2 tab Phenylephrine HCl (Everardo-Synephrine) Confirm Administered Dose 10 mg .ROUTE .STK- MED ONE Stop: 06/19/17 12:21 Propofol (Diprivan 20 Ml) Confirm Administered Dose 400 mg .ROUTE .STK-MED ONE Stop: 06/19/17 07:36 Propofol (Diprivan 20 Ml) Confirm Administered Dose 200 mg .ROUTE .STK-MED ONE Stop: 06/19/17 14:54 Propofol (Diprivan 20 Ml) Confirm Administered Dose 200 mg .ROUTE .STK-MED ONE Stop: 06/19/17 15:38 Scopolamine (Transderm-Scop) 1.5 mg TRDERM Q72H PRN PRN Reason: Nausea/Vomiting Last Admin: 06/19/17 17:49 Dose: 1.5 mg Senna (Senna) 8.6 mg PO BID PRN PRN Reason: Constipation Sodium Chloride (Saline Flush) 10 ml FLUSH ASDIRECTED PRN PRN Reason: Keep Vein Open Stop: 06/19/17 18:00 Tamsulosin HCl (Flomax) 0.4 mg PO ONETIME ONE Stop: 06/20/17 09:01 Last Admin: 06/20/17 09:03 Dose: 0.4 mg Tranexamic Acid (Cyklokapron) Confirm Administered Dose 1,000 mg .ROUTE .STK- MED ONE Stop: 06/19/17 09:23 Last Admin: 06/19/17 15:24 Dose: 1,000 mg Vancomycin HCl (Vancomycin) Confirm Administered Dose 1 gm .ROUTE .STK-MED ONE Stop: 06/19/17 13:00 Last Admin: 06/19/17 15:00 Dose: 1 gm - Exam Wound/Incisions: Dressing Dry and Intact General: Alert, Cooperative, No Acute Distress Extremities: Other (Divine's negative. NVS intact for BLE. Assistance with SLR LLE required.) - Problem List Review Problem List Initiated/Reviewed/Updated: Yes - Assessment Assessment (Free Text/Narrative):: POD#1 - left TKA - Plan Plan (Free Text/Narrative):: 1. The pt is prepared for discharge to home today. He will have the assistance of his . 2. Medical management per Hospitalist service. 3. Hgb 11.5. 4. 325mg ASA BID for VTE prophylaxis. TEDs, frequent mobility. The pt's case was discussed with Dr. Aceves.
--- NOTE | 2017-06-22 09:32 | PCM.DCSUM1 ---
Discharge Summary - Hospital Course Brief History: Brandan is a 47 yo male who underwent left TKA with Dr. Aceves on . The procedure was completed with spinal anesthesia with sedation. The pt tolerated the procedure well and was admitted to the Medical-Surgical Unit. The pt received alejandro-operative antibiotic therapy. Medical managment was provided by the Hospitalist service and the pt's hospital course was uneventful. On POD#1, 325mg ASA BID was initiated for VTE prophylaxis. SCDs and TEDs were also used. The pt participated in P.T. and O.T. and progressed well. He was allowed to WBAT and used a FWW for mobility. On POD#1, the pt's Hgb was 11.5. On POD#1, the pt was deemed appropriate for discharge to home with his . The pt will attend outpatient P.T. - Discharge Data Discharge Date: 06/20/17 Discharge Disposition: Home, Self-Care 01 Condition: Good - Patient Summary/Data Consults: Consultations 06/19/17 14:16 Consult to Physician [CONS] Routine OT Evaluation and Treatment [CONS] Routine 06/19/17 14:19 PT Evaluation and Treatment [CONS] Routine - Patient Instructions Diet: Usual Diet as Tolerated Activity: As Tolerated Driving: Do Not Drive Showering/Bathing: May Shower Wound/Incision Care: Keep Operative Site/Wound Site Clean and Dry, Do NOT Change Dressing Notify Provider of: Fever, Increased Pain, Swelling and Redness, Drainage, Nausea and/or Vomiting Other/Special Instructions: Please get up and moving around every hour while awake. This helps to prevent blood clots. Please use your walker and have help with mobility as needed. Please take a 325mg ASPIRIN TWICE DAILY. This also helps to prevent blood clots. You may schedule for P.T. Use the pain medication as needed. The medication may cause drowsiness and constipation. Contact your primary care provider for instructions if you are constipated. You may use a stool softener like docusate sodium or Colace 100mg twice daily and/or a laxative like Miralax daily for constipation. Wear the SALUD hose during the day and you may remove these at night. Place ice to the knee often. Place a towel between your skin and the blue pad. Schedule an appointment with your primary care provider for 'routine post-op care'. Call the Clinic with questions or concerns - [phone]. - Discharge Plan Prescriptions/Med Rec: Acetaminophen/oxyCODONE [Percocet 325-5 MG] 1 - 2 tab PO Q4H PRN #60 tablet PRN Reason: Pain Aspirin [Ecotrin] 325 mg PO BID #84 tab.ec Cyclobenzaprine [Flexeril] 10 mg PO TID PRN #40 tablet PRN Reason: muscle spasms Home Medications: Home Meds Acetaminophen [Tylenol] 650 mg PO Q6H PRN 06/16/17 [History] Acetaminophen/oxyCODONE [Percocet 325-5 MG] 1 - 2 tab PO Q4H PRN #60 tablet [Rx] Aspirin [Ecotrin] 325 mg PO BID #84 tab.ec 06/20/17 [Rx] Cyclobenzaprine [Flexeril] 10 mg PO TID PRN #40 tablet 06/20/17 [Rx] Patient Handouts: Total Knee Replacement, Care After, [id number], Total Knee Replacement, [id number], Aspirin, ASA oral tablets, Knee Rehabilitation Guidelines Following Surgery Referrals: Graciela Wilkins PA-C [Primary Care Provider] - 06/30/17 10:30 am (Please follow up with Graciela Wilkins on Jun 30 at 10:30am) Radha Vyas PA-C [Physician Bulb Filler] - 06/27/17 10:00 am (You have two follow up appts with Radha Vyas on Jun 27 at 10:00 am and Jul 04 8:30 am) - Patient Data Vitals - Most Recent: Last Vital Signs Temp 99.1 F 06/20/17 15:13 Pulse 79 06/20/17 15:13 Resp 14 06/20/17 15:13 BP 113/63 06/20/17 15:13 Pulse Ox 97 06/20/17 15:13 Weight - Most Recent: 187 lb 12.8 oz Med Orders - Current: Current Medications Discontinued Medications Acetaminophen (Tylenol) 650 mg PO Q6H PRN PRN Reason: Pain Aspirin (Ecotrin) 325 mg PO BID TETE Last Admin: 06/20/17 09:03 Dose: 325 mg Bisacodyl (Dulcolax) 5 mg PO DAILY PRN PRN Reason: Constipation Bupivacaine HCl (Marcaine 0.25%) Confirm Administered Dose 30 ml .ROUTE .STK- MED ONE Stop: 06/19/17 09:23 Last Admin: 06/19/17 15:18 Dose: 30 ml Bupivacaine HCl (Marcaine 0.25%) Confirm Administered Dose 30 ml .ROUTE .STK- MED ONE Stop: 06/19/17 13:33 Cefazolin Sodium (Ancef) Confirm Administered Dose 2 gm .ROUTE .STK-MED ONE Stop: 06/19/17 09:27 Last Admin: 06/19/17 15:13 Dose: 2 gm Morphine Sulfate 8 mg/Epinephrine HCl 0.3 mg/Cefuroxime Sodium 750 mg/Ketorolac Tromethamine 30 mg/Sodium Chloride 27.9 ml 0 mg .XX ONETIME ONE Stop: 06/19/17 12:46 Last Admin: 06/19/17 21:37 Dose: Not Given Cyclobenzaprine HCl (Flexeril) 10 mg PO TID PRN PRN Reason: Spasms Last Admin: 06/20/17 15:42 Dose: 10 mg Diphenhydramine HCl (Benadryl) 25 mg IVPUSH Q6H PRN PRN Reason: pruritis Stop: 06/19/17 18:00 Diphenhydramine HCl (Benadryl) 25 mg IVPUSH Q6H PRN PRN Reason: Itching Last Admin: 06/20/17 05:17 Dose: 25 mg Docusate Sodium (Colace) 100 mg PO BID [facility] Last Admin: 06/20/17 09:03 Dose: 100 mg Ephedrine Sulfate (Ephedrine Sulfate) Confirm Administered Dose 50 mg .ROUTE .STK-MED ONE Stop: 06/19/17 12:21 Ephedrine Sulfate (Ephedrine Sulfate) 5 mg IVPUSH ASDIRECTED PRN PRN Reason: Hypotension Stop: 06/19/17 18:00 Epinephrine HCl (Adrenalin 1:1000) Confirm Administered Dose 30 mg .ROUTE .STK- MED ONE Stop: 06/19/17 09:23 Famotidine (Pepcid) 20 mg PO Q12H [facility] Last Admin: 06/20/17 09:03 Dose: 20 mg Fentanyl (Sublimaze) Confirm Administered Dose 100 mcg .ROUTE .STK-MED ONE Stop: 06/19/17 07:36 Fentanyl (Sublimaze) 50 mcg IVPUSH Q5M PRN PRN Reason: Pain Stop: 06/19/17 18:00 Hydromorphone HCl (Dilaudid) 0.5 mg IVPUSH Q15M PRN PRN Reason: severe pain Stop: 06/19/17 18:00 Lactated Ringer's (Ringers, Lactated) 1,000 mls @ 125 mls/hr IV ASDIRECTED [facility] Stop: 06/19/17 23:00 Last Admin: 06/19/17 11:35 Dose: 125 mls/hr Lidocaine HCl (Xylocaine-Mpf 1%) Confirm Administered Dose 10 mls @ as directed .ROUTE .STK-MED ONE Stop: 06/19/17 07:36 Lactated Ringer's (Ringers, Lactated) Confirm Administered Dose 1,000 mls @ as directed .ROUTE .STK-MED ONE Stop: 06/19/17 14:26 Phenylephrine HCl 1 mg/ Sodium (Chloride) 10.1 mls @ 1 mls/sec IV TITRATE TETE PRN Reason: Protocol Stop: 06/19/17 17:00 Cefazolin Sodium/Dextrose 2 gm (/ Premix) 50 mls @ 100 mls/hr IV Q8H [facility] Stop: 06/20/17 12:29 Last Admin: 06/20/17 11:30 Dose: 100 mls/hr Lactated Ringer's (Ringers, Lactated) Confirm Administered Dose 1,000 mls @ as directed .ROUTE .STK-MED ONE Stop: 06/19/17 14:37 Iodine (Iodine 2% Mild Tincture) Confirm Administered Dose 30 ml .ROUTE .STK- MED ONE Stop: 06/19/17 09:23 Last Admin: 06/19/17 15:12 Dose: 18 ml Lidocaine/Sodium Bicarbonate (Buffered Lidocaine 1% In Ns 8.4%) 0.25 ml .XX ONETIME PRN PRN Reason: Prior to IV Start Stop: 06/19/17 18:00 Last Admin: 06/19/17 11:34 Dose: 0.25 ml Magnesium Hydroxide (Milk Of Magnesia) 30 ml PO BID PRN PRN Reason: Constipation Meperidine HCl (Demerol) 12.5 mg IVPUSH ONETIME TETE Last Admin: 06/19/17 16:28 Dose: 12.5 mg Midazolam HCl (Versed 1 Mg/Ml) Confirm Administered Dose 2 mg .ROUTE .STK-MED ONE Stop: 06/19/17 07:36 Midazolam HCl (Versed 1 Mg/Ml) Confirm Administered Dose 2 mg .ROUTE .STK-MED ONE Stop: 06/19/17 13:24 Midazolam HCl (Versed 1 Mg/Ml) 2 mg IVPUSH ONETIME PRN PRN Reason: Sedation Stop: 06/19/17 18:00 Miscellaneous Information (Remove Patch) 1 ea TRDERM Q72H [facility] Last Admin: 06/19/17 18:46 Dose: Not Given Morphine Sulfate (Duramorph Pf) Confirm Administered Dose 10 mg .ROUTE .STK-MED ONE Stop: 06/19/17 07:36 Morphine Sulfate (Morphine) 2 mg IVPUSH Q2H PRN PRN Reason: Breakthrough Pain Multivitamins (Thera) 1 each PO WITHBREAKFAST [facility] Last Admin: 06/20/17 06:25 Dose: 1 each Naloxone HCl (Narcan) 0.1 mg IVPUSH Q5M PRN PRN Reason: Oversedation Ondansetron HCl (Zofran) Confirm Administered Dose 4 mg .ROUTE .STK-MED ONE Stop: 06/19/17 07:36 Ondansetron HCl (Zofran) 4 mg IVPUSH ONETIME PRN PRN Reason: Nausea/Vomiting Stop: 06/19/17 18:00 Last Admin: 06/19/17 16:23 Dose: 4 mg Ondansetron HCl (Zofran) 4 mg IVPUSH Q6H PRN PRN Reason: Nausea/Vomiting Oxycodone/Acetaminophen (Percocet 325-5 Mg) 1 - 2 tab PO Q4H PRN PRN Reason: Pain Last Admin: 06/20/17 15:03 Dose: 2 tab Phenylephrine HCl (Everardo-Synephrine) Confirm Administered Dose 10 mg .ROUTE .STK- MED ONE Stop: 06/19/17 12:21 Propofol (Diprivan 20 Ml) Confirm Administered Dose 400 mg .ROUTE .STK-MED ONE Stop: 06/19/17 07:36 Propofol (Diprivan 20 Ml) Confirm Administered Dose 200 mg .ROUTE .STK-MED ONE Stop: 06/19/17 14:54 Propofol (Diprivan 20 Ml) Confirm Administered Dose 200 mg .ROUTE .STK-MED ONE Stop: 06/19/17 15:38 Scopolamine (Transderm-Scop) 1.5 mg TRDERM Q72H PRN PRN Reason: Nausea/Vomiting Last Admin: 06/19/17 17:49 Dose: 1.5 mg Senna (Senna) 8.6 mg PO BID PRN PRN Reason: Constipation Sodium Chloride (Saline Flush) 10 ml FLUSH ASDIRECTED PRN PRN Reason: Keep Vein Open Stop: 06/19/17 18:00 Tamsulosin HCl (Flomax) 0.4 mg PO ONETIME ONE Stop: 06/20/17 09:01 Last Admin: 06/20/17 09:03 Dose: 0.4 mg Tranexamic Acid (Cyklokapron) Confirm Administered Dose 1,000 mg .ROUTE .STK- MED ONE Stop: 06/19/17 09:23 Last Admin: 06/19/17 15:24 Dose: 1,000 mg Vancomycin HCl (Vancomycin) Confirm Administered Dose 1 gm .ROUTE .STK-MED ONE Stop: 06/19/17 13:00 Last Admin: 06/19/17 15:00 Dose: 1 gm *Q Meaningful Use (DIS) - VTE *Q VTE Criteria *Q: - Stroke *Q Stroke Criteria *Q: - AMI *Q AMI Criteria *Q:
--- NOTE | 2017-06-27 15:23 | PCM.OPNOTE ---
- General Post-Op/Procedure Note Date of Surgery/Procedure: 06/19/17 Operative Procedure(s): left total knee arthroplasty Pre Op Diagnosis: left knee osteoarthrosis Post-Op Diagnosis: Same Anesthesia Technique: Local, MAC, Spinal Primary Surgeon: Miki Aceves Anesthesia Provider: Lisa Mcmahon Silverware Etcher: Radha Vyas Silverware Etcher: Lidia Ott EBCj in mLs: 450 Complications: None Condition: Good
--- NOTE | 2017-06-27 16:52 | OR ---
DATE OF OPERATION: 06/19/2017 SURGEON: Miki Aceves MD OPERATION PERFORMED: Left total knee arthroplasty. PREOPERATIVE DIAGNOSIS: Left knee osteoarthrosis. POSTOPERATIVE DIAGNOSIS: Left knee osteoarthrosis. ANESTHESIA: Local MAC with spinal. ANESTHESIA PROVIDER: Lisa Poole. PROJECT COORDINATOR: Radha Vyas PA-C and Lidia Ott LPN. ESTIMATED BLOOD LOSS: 450 mL. COMPLICATIONS: None. CONDITION: Stable. IMPLANTS: 1. [place] size 4 PS femur press-fit. 2. [place] size 3 press-fit tibia. 3. Lydia size 3 9 mm PS X3 polyethylene. 4. 32 x 10 mm [place] press-fit patella. DESCRIPTION OF PROCEDURE: The patient was identified in the preoperative holding area, proper site was marked and identified by the surgeon. The patient was taken back to the operating theater where after adequate anesthesia, the patient's left lower extremity had a nonsterile tourniquet applied and was then sterilely prepped and draped in the usual sterile fashion. OR time-out was performed. The patient received 2 g IV Ancef. At this time, the left lower extremity was exsanguinated. Tourniquet was insufflated to 250 mmHg. Standard medial parapatellar incision was made in the skin and a medial parapatellar arthrotomy was created. Deep fibers of the MCL were raised and the anterior fat pads resected. The patella measured a 25, and it was resected to a 15 for a 32 x 10 mm patella. Drill holes were then drilled for a press-fit patella. At this time, attention was turned to the distal femur. Intramedullary distal femoral hole was then drilled and the intramedullary distal femoral cutting guide was placed. An 8 mm was resected off the distal femur and was found to be an adequate resection. Sizing guide was then placed. It was found to be a size 4 femur. Epicondylar access holes were then drilled using [place] line and epicondyles as reference. A 4 in 1 cutting block was then placed for a size 4, anterior and posterior chamfer cuts were then completed, and it was found to be an adequate resection. At this time, box cut for a size 4 was then completed and found to be adequate. Attention was turned to the tibia. Posterior mediolateral retractors were placed. An extramedullary tibial cutting guide was placed and aligned with the second ray. The patient was noted to have significant amount of proximal tibial bow that was accounted for as well. At this time, 9 mm was resected off the unaffected lateral side and the slope was set for roughly 0 to 3 degrees. It was found to be an adequate resection. Posterior osteophytes as well as medial lateral meniscus were then removed. At this time, trial size 3 was found to have adequate coverage on the tibia. Trial implants were then placed with a 9 mm trial spacer. The patient had full knee flexion and extension and was stable to varus valgus stress and had roughly neutral alignment. At this time, drill holes were drilled in the femur for the press-fit femur and the PEG holes as well as all slots in the tibia were then completed. Next, a size 3 [place] press-fit femur was impacted into place and found to have adequate fixation. A Lydia press-fit size 4 femur was impacted into place and found to have adequate fixation. A 9 mm PS X3 polyethylene was then impacted into place and a 32 x 10 mm asymmetric patella was press-fit into place. At this time, the patient had full extension and flexion with good stability and good tracking of the patella. 1 L dilute Betadine solution was irrigated through the knee along with 3 L pulse lavage irrigation with Ancef. Periarticular injection was then completed. 1 g of vancomycin powder was placed through the knee along with topical tranexamic acid. A #2 barbed suture was used for closure of medial parapatellar arthrotomy, 2-0 Vicryl was used subcutaneously, and a running Monocryl as well as peroneal was used for the skin. The patient tolerated the procedure well and was sent to the PACU in stable condition. MONICA /[id number]
== END 2017-06-20 17:15 | disposition home or self-care (01) | DRG 470 ==
LOC: JD.OB 10:53 → JD.MS 17:18
PROVIDERS: ADMIT Orthopaedic Surgery; ATTEND Orthopaedic Surgery
PROC: 0SRD0JA Replacement of Left Knee Joint with Synthetic Substitute, Uncemented, Open Approach (ICD-10-PCS; principal; 2017-06-19)
DX: M17.12 Unilateral primary osteoarthritis, left knee (principal); E66.9 Obesity, unspecified; Z68.34 Body mass index [BMI] 34.0-34.9, adult; R11.0 Nausea; Z79.82 Long term (current) use of aspirin; Z79.899 Other long term (current) drug therapy
CPT/HCPCS: 01402; 36415; 73560-26-LT; 73560-LT; 80053; 85027; 87641; 94762; 97110-GP; 97116-GP; 97161-GP; 97165-GO; 97535-GO; A9270-GY; C1776; J0171; J0690; J1200; J2175; J2250; J2270; J2370; J2405; J2704; J3010; J3370; J3490; J7120

== ENCOUNTER 2017-08-10 09:47 | Day surgery (SDC) | payer OTHER ==
--- NOTE | 2017-08-10 11:11 | PCM.PREANE ---
Preanesthetic Assessment - Procedure Proposed Procedure: Left knee manipulation - Anesthesia/Transfusion/Family Hx Anesthesia History: Prior Anesthesia Without Reaction Family History of Anesthesia Reaction: No Transfusion History: No Prior Transfusion(s) Intubation History: Unknown - Review of Systems General: No Symptoms Pulmonary: No Symptoms Cardiovascular: No Symptoms Gastrointestinal: No Symptoms Neurological: No Symptoms Other: Reports: None - Physical Assessment NPO Status Date: 08/09/17 NPO Status Time: 21:30 O2 Sat by Pulse Oximetry: 99 Respiratory Rate: 16 Vital Signs: Last Vital Signs Temp 36.8 C 08/10/17 10:10 Pulse 78 08/10/17 10:10 Resp 16 08/10/17 10:10 BP 111/77 08/10/17 10:10 Pulse Ox 99 08/10/17 10:10 Weight: 80.286 kg ASA Class: 2 Mental Status: Alert & Oriented x3 Airway Class: Mallampati = 2 Dentition: Reports: Normal Dentition Thyro-Mental Finger Breadths: 3 Mouth Opening Finger Breadths: 3 ROM/Head Extension: Full Lungs: Clear to Auscultation, Normal Respiratory Effort Cardiovascular: Regular Rate, Regular Rhythm - Lab Values: Laboratory Last Values MRSA (PCR) Negative 08/08/17 13:59 - Allergies Allergies/Adverse Reactions: Allergies Allergy/AdvReac Type Severity Reaction Status Date / Time No Known Allergies Allergy Verified 08/09/17 16:44 - Blood Blood Available: No Product(s) Available: None - Anesthesia Plan Pre-Op Medication Ordered: None - Acknowledgements Anesthesia Type Planned: General Anesthesia, MAC Pt an Appropriate Candidate for the Planned Anesthesia: Yes Alternatives and Risks of Anesthesia Discussed w Pt/Guardian: Yes Pt/Guardian Understands and Agrees with Anesthesia Plan: Yes PreAnesthesia Questionnaire - Past Health History Medical/Surgical History: Denies Medical/Surgical History HEENT History: Reports: Impaired Vision, Other (See Below) Other HEENT History: wears glasses Cardiovascular History: Reports: None Respiratory History: Reports: None Gastrointestinal History: Reports: None Genitourinary History: Reports: None 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 Musculoskeletal History: Reports: Other (See Below) Other Musculoskeletal History: left knee pain Neurological History: Reports: None Psychiatric History: Reports: None Endocrine/Metabolic History: Reports: None Hematologic History: Reports: None Immunologic History: Reports: None Oncologic (Cancer) History: Reports: None Dermatologic History: Reports: None - Past Surgical History Head Surgeries/Procedures: Reports: None Cardiovascular Surgical History: Reports: None Respiratory Surgical History: Reports: None GI Surgical History: Reports: None Female Surgical History: Reports: None Male Surgical History: Reports: None Endocrine Surgical History: Reports: None Neurological Surgical History: Reports: None Musculoskeletal Surgical History: Reports: Knee Replacement Oncologic Surgical History: Reports: None Dermatological Surgical History: Reports: None - SUBSTANCE USE Smoking Status *Q: Never Smoker Second Hand Smoke Exposure: No Recreational Drug Use History: No - HOME MEDS Home Medications: Home Meds Acetaminophen [Tylenol] 650 mg PO Q6H PRN 06/16/17 [History] Acetaminophen/oxyCODONE [Percocet 325-5 MG] 1 - 2 tab PO Q4H PRN #60 tablet [Rx] Cyclobenzaprine [Flexeril] 10 mg PO TID PRN #40 tablet 06/20/17 [Rx] Aspirin 325 mg PO BID #84 tablet 08/10/17 [Rx] Cyclobenzaprine [Flexeril] 10 mg PO Q8H PRN #40 tablet 08/10/17 [Rx] oxyCODONE HCl/Acetaminophen [Percocet 5-325 mg Tablet] 1 - 2 each PO Q6H PRN # 40 tablet 08/10/17 [Rx] - CURRENT (IN HOUSE) MEDS Current Meds: Current Medications Lactated Ringer's (Ringers, Lactated) 1,000 mls @ 125 mls/hr IV ASDIRECTED TETE Stop: 08/10/17 23:00 Last Admin: 08/10/17 10:25 Dose: 125 mls/hr Lidocaine/Sodium Bicarbonate (Buffered Lidocaine 1% In Ns 8.4%) 0.25 ml .XX ONETIME PRN PRN Reason: Prior to IV Start Stop: 08/10/17 18:00 Last Admin: 08/10/17 10:25 Dose: 0.25 ml Sodium Chloride (Saline Flush) 10 ml FLUSH ASDIRECTED PRN PRN Reason: Keep Vein Open Stop: 08/10/17 18:00
[2017-08-10] MEDS ORDERED: HYDROmorphone 1 MG/ML Syringe ONE (11:22)
[2017-08-10] MEDS ORDERED: fentaNYL 100 MCG/2 ML SDV ONE (11:57)
[2017-08-10] MEDS ORDERED: Midazolam 1 MG/ML 2 ML SDV ONE (11:57)
[2017-08-10] MEDS ORDERED: Lidocaine 1% 4 ML ONE (11:57)
[2017-08-10] MEDS ORDERED: Propofol 200 MG/20 ML SDV ONE (11:57)
[2017-08-10] MEDS ORDERED: Scopolamine 1.5 MG Transdermal Patch TRDERM PRN (12:05)
[2017-08-10] MEDS ORDERED: fentaNYL 100 MCG/2 ML SDV IVPUSH PRN (13:15)
[2017-08-10] MEDS ORDERED: HYDROmorphone 0.5 MG/0.5 ML Syringe IVPUSH PRN (13:15)
[2017-08-10] MEDS ORDERED: HYDROmorphone 0.5 MG/0.5 ML Syringe ONE (13:15)
[2017-08-10] MEDS ORDERED: Ketorolac 30 MG/ML SDV IVPUSH PRN (13:15)
--- NOTE | 2017-08-10 13:17 | PCM.POSTAN ---
POST ANESTHESIA ASSESSMENT - MENTAL STATUS Mental Status: Somnolent - VITAL SIGNS Pulse Rate: 89 SaO2: 95 Resp Rate: 13 Blood Pressure: 122/85 Temperature: 37.1 C - RESPIRATORY Respiratory Status: Respiratory Rate WNL, Airway Patent, O2 Saturation Stable, Supplemental Oxygen - CARDIOVASCULAR CV Status: Pulse Rate WNL, Blood Pressure Stable - GASTROINTESTINAL GI Status: No Symptoms - PAIN Pain Score: 0 - POST OP HYDRATION Hydration Status: Adequate & Stable - OBSERVATIONS Free Text/Narrative:: no anesthesia complications noted
[2017-08-10] MEDS ORDERED: Acetaminophen/oxyCODONE 325-5 MG Tab PO ONE (14:22)
--- NOTE | 2017-08-10 15:05 | CR ---
Left knee: Three fluoroscopic spot views were obtained of the left knee utilizing C-arm device. Knee prosthesis is seen. Lateral view shows neutral and flexion of the knee. No underlying bony abnormality is seen. Fluoroscopy time given as 15.5 seconds. Impression: 1. Findings as noted above. Diagnostic code #2
[2017-08-10 15:17] VITALS: BP 125/87
--- NOTE | 2017-08-15 07:17 | PCM.OPNOTE ---
- General Post-Op/Procedure Note Date of Surgery/Procedure: 08/10/17 Operative Procedure(s): manipulation of left total knee arthroplasty Pre Op Diagnosis: arthrofibrosis left knee Post-Op Diagnosis: Same Anesthesia Technique: General LMA Primary Surgeon: Miki Aceves Anesthesia Provider: Bart Trevino EBL in mLs: 0 Complications: None Condition: Good
--- NOTE | 2017-08-15 07:46 | OR ---
DATE OF OPERATION: 08/10/2017 SURGEON: Miki Aceves MD OPERATION PERFORMED: Manipulation of left total knee arthroplasty. PREOPERATIVE DIAGNOSIS: Arthrofibrosis, left knee. POSTOPERATIVE DIAGNOSIS: Arthrofibrosis, left knee. ANESTHESIA: General LMA. FOOD SERVICE ASSOCIATE: None. ANESTHESIA PROVIDER: Bart Trevino CRNA. ESTIMATED BLOOD LOSS: Zero mL. COMPLICATIONS: None. CONDITION: Stable. DESCRIPTION OF PROCEDURE: The patient was identified in the preoperative holding area. Proper site was marked and identified by the surgeon. The patient was taken back to the operating theater where after adequate anesthesia, the patient's left lower extremity was identified and a time-out was performed. At this time, the patient had motion from 10-68 degrees. At this time, gentle range of motion under C-arm fluoroscopy was done. By the end of the manipulation, the patient had 6 to 120 degrees of motion. It was stable throughout range of motion. There was no instability noted. At this time, the patient was sent to the PACU in stable condition and will begin physical therapy tomorrow. MMODAL /[id number]
== END 2017-08-10 15:02 | disposition home or self-care (01) ==
LOC: JD.SDS 09:47
PROVIDERS: ATTEND Orthopaedic Surgery
DX: M24.662 Ankylosis, left knee (principal); Z79.899 Other long term (current) drug therapy
CPT/HCPCS: 27570; 76000; 87641; A9270; J1170; J2250; J3010; J7120; 01380; J2704

== ENCOUNTER 2020-10-09 08:01 | Emergency (ER) | payer OTHER ==
[2020-10-09] MEDS ORDERED: Ibuprofen 800 MG Tab PO ONE (08:43)
[2020-10-09] MEDS ORDERED: Acetaminophen 325 MG Tab PO ONE (08:43)
--- NOTE | 2020-10-09 08:44 | EDM.PDOC ---
ED HPI GENERAL MEDICAL PROBLEM - General Chief Complaint: Respiratory Problem Stated Complaint: L SIDE RIB PAIN Time Seen by Provider: 10/09/20 08:17 Source of Information: Reports: Patient, RN Notes Reviewed - History of Present Illness INITIAL COMMENTS - FREE TEXT/NARRATIVE: 50 yr old with onset of L back and flank pain 4 days ago. It seems to be getting worse. No known injury. The pain does not go away with rest or sitting or lying still. No fever, chills, nausea or vomiting. Left Chest Pain Score (Numeric/FACES): 6 - Related Data Allergies Allergy/AdvReac Type Severity Reaction Status Date / Time No Known Allergies Allergy Verified 10/09/20 08:06 Home Meds: Home Meds Acetaminophen [Tylenol] 650 mg PO Q6H PRN 06/16/17 [History] oxyCODONE HCl/Acetaminophen [Percocet 5-325 mg Tablet] 1 - 2 each PO Q6H PRN #40 tablet 08/10/17 [Rx] Acetaminophen/HYDROcodone [[place] 325-5 MG] 1 tab PO Q6H PRN #14 tablet 10/09/20 [Rx] Past Medical History - Past Health History Medical/Surgical History: Denies Medical/Surgical History HEENT History: Reports: Impaired Vision, Other (See Below) Other HEENT History: wears glasses Cardiovascular History: Reports: None Respiratory History: Reports: None Gastrointestinal History: Reports: None Genitourinary History: Reports: None 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 Musculoskeletal History: Reports: Other (See Below) Other Musculoskeletal History: left knee pain Neurological History: Reports: None Psychiatric History: Reports: None Endocrine/Metabolic History: Reports: None Hematologic History: Reports: None Immunologic History: Reports: None Oncologic (Cancer) History: Reports: None Dermatologic History: Reports: None - Past Surgical History HEENT Surgical History: Reports: Adenoidectomy, Tonsillectomy Musculoskeletal Surgical History: Reports: Knee Replacement Social & Family History - Family History Family Medical History: No Pertinent Family History - Tobacco Use Tobacco Use Status *Q: Never Tobacco User Second Hand Smoke Exposure: No - Caffeine Use Caffeine Use: Reports: Coffee, Soda - Recreational Drug Use Recreational Drug Use: No ED ROS GENERAL - Review of Systems Review Of Systems: See Below Constitutional: Denies: Fever, Chills, Diaphoresis HEENT: Reports: No Symptoms Respiratory: Reports: No Symptoms. Denies: Shortness of Breath, Pleuritic Chest Pain Cardiovascular: Denies: Chest Pain GI/Abdominal: Reports: Abdominal Pain (pain does come around to L flank and L mid abd). Denies: Nausea, Vomiting Musculoskeletal: Reports: Back Pain Skin: Reports: No Symptoms. Denies: Rash Neurological: Reports: No Symptoms ED EXAM, GENERAL - Physical Exam Exam: See Below General Appearance: Alert, Mild Distress Head: Atraumatic Neck: Supple Respiratory/Chest: No Respiratory Distress, Lungs Clear, Normal Breath Sounds, Chest Non-Tender Cardiovascular: Regular Rate, Rhythm GI/Abdominal: Soft, Non-Tender. No: Guarding Back Exam: No: CVA Tenderness (L), CVA Tenderness (R) Extremities: Normal Inspection, Normal Range of Motion Neurological: Alert, No Motor/Sensory Deficits Skin Exam: Warm, Dry, Normal Color, No Rash Course - Vital Signs Last Recorded V/S: Last Vital Signs Temp 97.2 F 10/09/20 08:05 Pulse 68 10/09/20 08:05 Resp 18 10/09/20 08:05 BP 127/92 H 10/09/20 08:05 Pulse Ox 98 10/09/20 08:05 - Orders/Labs/Meds Labs: Laboratory Tests 10/09/20 Range/Units 08:50 Urine Color Yellow (Yellow) Urine Appearance Clear (Clear) Urine pH 6.5 (5.0-8.0) Ur Specific [place] 1.015 (1.005-1.030) Urine Protein Negative (Negative) Urine Glucose (UA) Negative (Negative) Urine Ketones Negative (Negative) Urine Occult Blood Negative (Negative) Urine Nitrite Negative (Negative) Urine Bilirubin Negative (Negative) Urine Urobilinogen 0.2 (0.2-1.0) Ur Leukocyte Esterase Negative (Negative) Meds: Medications Discontinued Medications Generic Name Dose Route Start Last Admin Trade Name Freq PRN Reason Stop Dose Admin Acetaminophen 975 mg 10/09/20 08:43 10/09/20 08:58 Tylenol PO 10/09/20 08:44 975 mg NOW ONE Administration Ibuprofen 800 mg 10/09/20 08:43 10/09/20 08:58 Motrin PO 10/09/20 08:44 800 mg ONETIME ONE Administration Departure - Departure Time of Disposition: 10:21 Disposition: Home, Self-Care 01 Condition: Fair Clinical Impression: Anterior chest wall pain Back pain Qualifiers: Back pain location: low back pain Back pain laterality: left Sciatica presence: without sciatica - Discharge Information Prescriptions: Acetaminophen/HYDROcodone [[place] 325-5 MG] 1 tab PO Q6H PRN #14 tablet PRN Reason: Pain Referrals: Angel Garcia MD [Primary Care Provider] - Forms: ED Department Discharge Additional Instructions: Motrin 800 mg 3 times daily with food. Tylenol in between doses for extra pain relief or hydrocodone if needed for more severe pain. Prescription has been sent electronically to [facility]. Alternate Ice and heat as needed. Rest. Increase activity (raquetball) slowly as tolerated. Follow up clinic as needed. Return to ED as needed if symptoms worsening in any way. Sepsis Event Note (ED) - Evaluation Sepsis Screening Result: No Definite Risk - Focused Exam Vital Signs: Vital Signs Temp Pulse Resp BP Pulse Ox 10/09/20 08:05 97.2 F 68 18 127/92 H 98
--- NOTE | 2020-10-09 09:32 | CT ---
CT abdomen and pelvis Technique: Multiple axial sections were obtained from above the dome of the diaphragm inferiorly through the pubic symphysis. Intravenous normal contrast was not utilized. Study has been performed as a ureteral stone protocol. Findings: Kidneys show no abnormal calcifications. Ureters show no dilatation. No abnormal calcifications are seen within the ureters. Bladder wall is slightly thickened. Visualized lung bases show nothing acute. Noncontrast liver and spleen appear within normal limits. Gallbladder contains no calcified gallstones. No adrenal nodule is appreciated. Pancreas shows no discrete abnormality. Aorta shows no aneurysm. No retroperitoneal adenopathy or mesenteric abnormalities are appreciated. Appendix is seen which is normal in size. No pelvic mass or adenopathy is appreciated. No free fluid or inflammatory change is identified. Bone window settings were reviewed which show scattered degenerative change within the spine with no acute osseous abnormality being appreciated. Impression: 1. Bladder wall thickening. Please exclude any symptoms of cystitis. 2. No renal calculi, ureteral dilatation or ureteral stone is seen. 3. Other findings believed to be incidental and not acute as noted above. Diagnostic code #2
[2020-10-09 10:41] VITALS: BP 108/82; PULSE 70
== END 2020-10-09 10:40 | disposition home or self-care (01) ==
LOC: JD.ED 08:01
DX: R07.89 Other chest pain (principal); M54.5 Low back pain; Z90.49 Acquired absence of other specified parts of digestive tract
CPT/HCPCS: 74176; 81003; 99285; A9270